=== PATIENT | male | born 1950 | race Caucasian/White ===

== ENCOUNTER 2019-05-06 15:45 | Emergency (ER) | payer MEDICAID, MEDICARE ==
[~2019-05-06] VITALS: Ht 152.4 cm; Wt 70.3 kg
[~2019-05-06 15:45] MED LIST: PHEN125O PO
[2019-05-06 16:07] VITALS: BP_SYST 133
--- NOTE | 2019-05-06 16:10 | NUR ---
PATIENT TO [facility] #1
[2019-05-06] MEDS ORDERED: PHEN100T PO (16:45)
--- NOTE | 2019-05-06 16:50 | NUR ---
PATIENT PRESENTS TO THE ER WITH FINGER SWELLING TO LEFT #2 DIGIT SECONDARY TO RING PLACEMENT 7 YEARS AGO; SWELLING DISTAL TO RING FOR TWO MONTHS; NO OTHER TRAUMA, NO OTHER REMARKABLE S/S; PATIENT CONSENTS TO RING REMOVAL (ADVISED OF TWO CUTS WITH RING CUTTER)
--- NOTE | 2019-05-06 16:52 | NUR ---
RING REMOVED AND SKIN NOTED INTACT WITH RESIDUAL SWELLING; DISPOSITION PENDING
[2019-05-06 17:10] VITALS: BP_SYST 132
--- NOTE | 2019-05-06 17:20 | NUR ---
Patient given written and verbal discharge instructions and verbalizes understanding. ER MD discussed with patient the results and treatment provided. Patient in stable condition. ID arm band removed. No Rx given. Patient educated on pain management and to follow up with PMD. Pain Scale 2/10 . Opportunity for questions provided and answered. Medication side effect fact sheet provided.
== END 2019-05-06 17:10 | disposition home or self-care (01) ==
LOC: SED 15:45
DX: S60.450A Superficial foreign body of right index finger, initial encounter (principal); X58.XXXA Exposure to other specified factors, initial encounter; Y93.89 Activity, other specified; Y92.89 Other specified places as the place of occurrence of the external cause; Y99.8 Other external cause status
CPT/HCPCS: 99284

== ENCOUNTER 2019-11-04 22:39 | Emergency (ER) | payer MEDICARE, MEDICAID ==
[~2019-11-04] VITALS: Ht 167.6 cm; Wt 63.5 kg
[~2019-11-04 22:39] MED LIST changes: +PHEN100T PO
[2019-11-04 22:45] VITALS: BP_SYST 120
[2019-11-04] MEDS ORDERED: ACETAMINOPHEN 500 MG TABLET PO ONE (23:00)
[2019-11-04] MEDS ORDERED: NACL 0.9% 1,000 ML IV ONE (23:15)
[2019-11-04 23:22] LABS: CALCIUM 8.6 mg/dL (8.4-11.0); CREATININE 1.15 mg/dL (0.55-1.30)
[2019-11-04 23:26] LABS: PROTHROMBIN TIME 10.4 SECS (9.5-12.5)
[2019-11-04 23:28] LABS: ALBUMIN 3.1 g/dL (3.4-4.8); TOTAL BILIRUBIN 0.1 mg/dL (0.0-1.0)
[2019-11-04 23:41] LABS: BASOPHILS % (AUTO) 0.6 % (0.0-2.0); HEMATOCRIT 27.9 % (36-54); HEMOGLOBIN 9.4 g/dL (14.0-18.0); LYMPHOCYTES % (AUTO) 14.1 % (20.5-51.5); MEAN CORPUSCULAR HEMOGLOBIN 33 pg (27-31); MEAN CORPUSCULAR HGB CONC 34 % (32-36); MEAN CORPUSCULAR VOLUME 96 fL (79.0-98.0); MONOCYTES # (AUTO) 0.9 K/uL (0.0-1.0); MONOCYTES % (AUTO) 12.2 % (1.7-9.3); NEUTROPHILS # (AUTO) 5.4 K/uL (1.8-7.7); NEUTROPHILS % (AUTO) 73.1 % (40.0-70.0); PLATELET COUNT (AUTO) 160 K/uL (130-430); RED BLOOD CELL COUNT(AUTO) 2.91 MIL/uL (4.2-6.2); WHITE BLOOD COUNT (AUTO) 7.4 K/uL (4.8-10.8)
[2019-11-04] MEDS ORDERED: PRIM250T32 PO (23:53)
[2019-11-04] MEDS ORDERED: OSCD500 PO (23:53)
[2019-11-04] MEDS ORDERED: OMEP40CA33 PO (23:53)
[2019-11-05 00:44] LABS: BILIRUBIN,URINE NEGATIVE (NEGATIVE); BLOOD, URINE 1+ (NEGATIVE); CLARITY/URINE CLEAR (CLEAR); COLOR,URINE YELLOW (YELLOW); GLUCOSE,URINE NEGATIVE (NEGATIVE); KETONES,URINE TRACE (NEGATIVE); LEUKOCYTE ESTERASE ,URINE NEGATIVE (NEGATIVE); NITRITE, URINE NEGATIVE (NEGATIVE); PH,URINE 5.5 (5.0-8.0); PROTEIN URINE 2+ (NEGATIVE); UROBILINOGEN,URINE 0.2 (0.2-1.0)
[2019-11-05 00:58] LABS: BACTERIA,URINE FEW /HPF (None Seen); WBC,URINE 0-3 /HPF (0-3)
[2019-11-05 00:59] LABS: HYALINE CASTS, URINE 0-10 /LPF (None Seen)
[2019-11-05 01:40] VITALS: BP_SYST 100
== END 2019-11-05 01:40 | disposition home or self-care (01) ==
LOC: SED 22:39
DX: N39.0 Urinary tract infection, site not specified (principal); Z20.828 Contact with and (suspected) exposure to other viral communicable diseases; Z79.899 Other long term (current) drug therapy
CPT/HCPCS: 36415; 71045; 80053; 81000; 83605; 84484; 85025; 85610; 87040; 87086; 93005; 96360; 99285; C9803; J7030; U0003

== ENCOUNTER 2020-01-09 16:59 | Emergency (ER) | payer MEDICARE, MEDICAID ==
[~2020-01-09] VITALS: Ht 167.6 cm; Wt 72.6 kg
[~2020-01-09 16:59] MED LIST changes: +OMEP40CA13 PO; +OSCD500 PO; +PRIM250T32 PO
--- NOTE | 2020-01-09 16:59 | NUR ---
Patient to ER bed 7 to gown for evaluation. Side rails up. Report given to DEBI Powers.
[2020-01-09 17:07] VITALS: BP_SYST 138
--- NOTE | 2020-01-09 17:07 | NUR ---
PT AAO AND WAS BIB AMBULANCE FOR SEIZURE ACTIVITY TODAY. PT WAS POST-ICTAL ON SCENE AND WAS FOUND ON THE GROUND BY BROTHER. PT DENIES ANY PAIN, ORAL TRAUMA, OR LOSS OF URINE. PT GCS 15 NOW AND V/S ARE STABLE.
[2020-01-09] MEDS ORDERED: PRIM250T32 PO (17:32)
[2020-01-09] MEDS ORDERED: PHEN100C4 PO (17:32)
[2020-01-09] MEDS ORDERED: ALEN70TA27 PO (17:32)
[2020-01-09] MEDS ORDERED: PHEN32.46 PO ×2 (17:32)
--- NOTE | 2020-01-09 17:33 | NUR ---
Medication reconciliation completed with information provided by patient's . Any prior medication reconciliation on file was reviewed and corrected.
--- NOTE | 2020-01-09 17:45 | NUR ---
ER Dr. Cardona at bedside examining patient.
[2020-01-09 18:04] VITALS: BP_SYST 138
--- NOTE | 2020-01-09 18:04 | NUR ---
Patient given written and verbal discharge instructions and verbalizes understanding. DR. ALLISON TOLBERT MD discussed with patient the results and treatment provided. Patient in stable condition. ID arm band removed.Patient educated on pain management and to follow up with PMD. Pain Scale 2/10. Opportunity for questions provided and answered.
== END 2020-01-09 18:04 | disposition home or self-care (01) ==
LOC: SED 16:59
DX: R56.9 Unspecified convulsions (principal); Z79.899 Other long term (current) drug therapy
CPT/HCPCS: 99283

== ENCOUNTER 2022-04-03 11:48 | Emergency (ER) | payer MEDICARE, MEDICAID ==
[~2022-04-03] VITALS: Ht 167.6 cm; Wt 61.2 kg
[~2022-04-03 11:48] MED LIST changes: +ALEN70TA27 PO; -OMEP40CA13 PO; -OSCD500 PO; +PHEN100C4 PO; -PHEN100T PO; -PHEN125O PO; +PHEN32.46 PO
[2022-04-03 11:56] VITALS: BP_SYST 156
[2022-04-03] MEDS ORDERED: NACL 0.9% 1,000 ML IV ONE (12:00)
[2022-04-03 12:09] LABS: BASOPHILS % (AUTO) 0.4 % (0.0-2.0); EOSINOPHILS # (AUTO) 0.1 K/uL (0.0-0.4); EOSINOPHILS % (AUTO) 1.7 % (0.0-4.0); HEMATOCRIT 34.8 % (36-54); HEMOGLOBIN 11.8 g/dL (14.0-18.0); LYMPHOCYTES # (AUTO) 1.7 K/uL (1.0-5.5); LYMPHOCYTES % (AUTO) 37.6 % (20.5-51.5); MEAN CORPUSCULAR HEMOGLOBIN 33 pg (27-31); MEAN CORPUSCULAR HGB CONC 34 % (32-36); MEAN CORPUSCULAR VOLUME 97 fL (79.0-98.0); MONOCYTES # (AUTO) 0.5 K/uL (0.0-1.0); MONOCYTES % (AUTO) 11.9 % (1.7-9.3); NEUTROPHILS # (AUTO) 2.1 K/uL (1.8-7.7); NEUTROPHILS % (AUTO) 48.4 % (40.0-70.0); PLATELET COUNT (AUTO) 197 K/uL (130-430); RED BLOOD CELL COUNT(AUTO) 3.57 MIL/uL (4.2-6.2); RED CELL DISTRIBUTION WIDTH 13.6 % (9.0-15.0); WHITE BLOOD COUNT (AUTO) 4.4 K/uL (4.8-10.8)
[2022-04-03 12:20] LABS: CALCIUM 8.8 mg/dL (8.4-11.0); CREATININE 0.88 mg/dL (0.55-1.30)
[2022-04-03 12:24] LABS: ALBUMIN 3.7 g/dL (3.4-4.8); PHENYTOIN (DILANTIN) 2.1 ug/mL (10.0-20.0); TOTAL BILIRUBIN 0.3 mg/dL (0.0-1.0)
[2022-04-03] MEDS ORDERED: POTASSIUM CHLORIDE 20 MEQ TAB.PRT.SR PO ONE (12:30)
[2022-04-03] MEDS ORDERED: PHENYTOIN SODIUM 100 MG/2 ML VIAL (DILANTIN) IVP ONE (12:30)
[2022-04-03 12:38] LABS: BILIRUBIN,URINE NEGATIVE (NEGATIVE); BLOOD, URINE 3+ (NEGATIVE); CLARITY/URINE TURBID (CLEAR); COLOR,URINE YELLOW (YELLOW); GLUCOSE,URINE NEGATIVE (NEGATIVE); KETONES,URINE NEGATIVE (NEGATIVE); LEUKOCYTE ESTERASE ,URINE NEGATIVE (NEGATIVE); NITRITE, URINE NEGATIVE (NEGATIVE); PROTEIN URINE 2+ (NEGATIVE); UROBILINOGEN,URINE 0.2 (0.2-1.0)
[2022-04-03 12:45] LABS: BACTERIA,URINE MODERATE /HPF (None Seen)
[2022-04-03] MEDS ORDERED: CEPH-548 PO ×2 (13:04→13:26)
[2022-04-03] MEDS ORDERED: PHEN100C4 PO ×2 (13:04→13:26)
[2022-04-03 13:20] VITALS: BP_SYST 134
== END 2022-04-03 13:18 | disposition home or self-care (01) ==
LOC: SED 11:48
DX: R56.9 Unspecified convulsions (principal); R89.2 Abnormal level of other drugs, medicaments and biological substances in specimens from other organs, systems and tissues; N39.0 Urinary tract infection, site not specified; E87.6 Hypokalemia; Z79.899 Other long term (current) drug therapy
CPT/HCPCS: 99285; 96374; 70450; 96361; 80053; 81000; 80185; 85025; 87086; 36415; 76376; J1165; J7030

== ENCOUNTER 2022-12-23 20:55 | Emergency (ER) | payer MEDICARE, MEDICAID ==
[~2022-12-23] VITALS: Ht 167.6 cm; Wt 63.5 kg
[~2022-12-23 20:55] MED LIST changes: +CEPH-548 PO
[2022-12-23 21:01] VITALS: BP_SYST 129; PULSE 98; RESP 18; TEMP 97.1; O2SAT 98
[2022-12-23 21:19] LABS: BASOPHILS % (AUTO) 0.4 % (0.0-2.0); EOSINOPHILS % (AUTO) 0.6 % (0.0-4.0); HEMATOCRIT 33.8 % (36-54); HEMOGLOBIN 11.4 g/dL (14.0-18.0); LYMPHOCYTES # (AUTO) 1.9 K/uL (1.0-5.5); LYMPHOCYTES % (AUTO) 35.1 % (20.5-51.5); MEAN CORPUSCULAR HEMOGLOBIN 33 pg (27-31); MEAN CORPUSCULAR HGB CONC 34 % (32-36); MEAN CORPUSCULAR VOLUME 99 fL (79.0-98.0); MONOCYTES # (AUTO) 0.7 K/uL (0.0-1.0); MONOCYTES % (AUTO) 12.9 % (1.7-9.3); NEUTROPHILS # (AUTO) 2.7 K/uL (1.8-7.7); PLATELET COUNT (AUTO) 176 K/uL (130-430); RED BLOOD CELL COUNT(AUTO) 3.43 MIL/uL (4.2-6.2); RED CELL DISTRIBUTION WIDTH 13.1 % (9.0-15.0); WHITE BLOOD COUNT (AUTO) 5.3 K/uL (4.8-10.8)
[2022-12-23 21:48] LABS: CALCIUM 8.8 mg/dL (8.4-11.0); CREATININE 0.81 mg/dL (0.55-1.30); POTASSIUM 3.7 mmol/L (3.5-5.1)
[2022-12-23 21:52] LABS: ALBUMIN 3.7 g/dL (3.4-4.8); PHENYTOIN (DILANTIN) 18.4 ug/mL (10.0-20.0); TOTAL BILIRUBIN 0.2 mg/dL (0.0-1.0); TOTAL PROTEIN, SERUM 8.3 g/dL (6.4-8.3)
[2022-12-24 00:37] VITALS: BP_SYST 127; PULSE 66; RESP 18; TEMP 98; O2SAT 99
[2022-12-24 01:39] LABS: PHENOBARBITAL 47.8 ug/mL (15.0-40.0)
== END 2022-12-24 00:37 | disposition home or self-care (01) ==
LOC: SED 20:55
DX: S01.01XA Laceration without foreign body of scalp, initial encounter (principal); S09.90XA Unspecified injury of head, initial encounter; Z79.899 Other long term (current) drug therapy; W19.XXXA Unspecified fall, initial encounter; Y93.89 Activity, other specified; Y92.89 Other specified places as the place of occurrence of the external cause; Y99.8 Other external cause status
CPT/HCPCS: 36415; 70450-TC; 76376; 80053; 80184; 80185; 85025; 99284

== ENCOUNTER 2022-12-29 15:07 | Emergency (ER) | payer MEDICARE, MEDICAID ==
[~2022-12-29] VITALS: Ht 167.6 cm; Wt 61.2 kg
[2022-12-29 15:32] VITALS: BP_SYST 132; PULSE 72; RESP 16; TEMP 97.8; O2SAT 97
== END 2022-12-29 17:00 | disposition home or self-care (01) ==
LOC: SED 15:07
DX: Z48.02 Encounter for removal of sutures (principal); Z79.899 Other long term (current) drug therapy
CPT/HCPCS: 99281

== ENCOUNTER 2023-11-07 13:40 | Emergency (ER) | payer MEDICARE, MEDICAID ==
[~2023-11-07] VITALS: Ht 167.6 cm; Wt 66.2 kg
[2023-11-07 13:51] VITALS: BP_SYST 124; PULSE 76; RESP 17; TEMP 97.1; O2SAT 98
[2023-11-07 14:30] VITALS: BP_SYST 106; PULSE 77; RESP 16; TEMP 97.4; O2SAT 97
[2023-11-07 14:37] LABS: BASOPHILS % (AUTO) 0.4 % (0.0-2.0); EOSINOPHILS % (AUTO) 0.6 % (0.0-4.0); HEMATOCRIT 32.4 % (36-54); HEMOGLOBIN 11.4 g/dL (14.0-18.0); LYMPHOCYTES # (AUTO) 1.4 K/uL (1.0-5.5); MEAN CORPUSCULAR HEMOGLOBIN 35 pg (27-31); MEAN CORPUSCULAR HGB CONC 35 % (32-36); MEAN CORPUSCULAR VOLUME 98 fL (79.0-98.0); MONOCYTES # (AUTO) 0.8 K/uL (0.0-1.0); MONOCYTES % (AUTO) 13.5 % (1.7-9.3); NEUTROPHILS # (AUTO) 3.5 K/uL (1.8-7.7); NEUTROPHILS % (AUTO) 60.5 % (40.0-70.0); PLATELET COUNT (AUTO) 211 K/uL (130-430); RED CELL DISTRIBUTION WIDTH 13.1 % (9.0-15.0); WHITE BLOOD COUNT (AUTO) 5.7 K/uL (4.8-10.8)
[2023-11-07 14:44] LABS: PROTHROMBIN TIME 10.7 SECS (9.5-12.5)
[2023-11-07 14:48] LABS: ALANINE AMINOTRANSFERASE 10 U/L (12-78); ALBUMIN 3.6 g/dL (3.4-4.8); ANION GAP 7 (5-15); ASPARTATE AMINOTRANSFERASE 16 U/L (10-37); BILIRUBIN,DIRECT 0.1 mg/dL (0.0-0.3); CALCIUM 8.5 mg/dL (8.4-11.0); CARBON DIOXIDE 30 mmol/L (23-29); CHLORIDE 102 mmol/L (98-107); GLUCOSE 117 mg/dL (74-106); PHENYTOIN (DILANTIN) 18.8 ug/mL (10.0-20.0); POTASSIUM 4.2 mmol/L (3.5-5.1); SODIUM SERUM 139 mmol/L (136-145); TOTAL BILIRUBIN 0.2 mg/dL (0.0-1.0); TOTAL PROTEIN, SERUM 8.2 g/dL (6.4-8.3); UREA NITROGEN, BLOOD 20 mg/dL (8-21)
== END 2023-11-07 15:29 | disposition home or self-care (01) ==
LOC: SED 13:40
DX: R00.2 Palpitations (principal); R07.89 Other chest pain; R56.9 Unspecified convulsions; Z79.899 Other long term (current) drug therapy; Z79.2 Long term (current) use of antibiotics; Z98.890 Other specified postprocedural states
CPT/HCPCS: 36415; 71045; 80048; 80076; 80185; 83735; 84484; 85025; 85610; 85730; 93005; 99285